=== PATIENT | female | born 2000 | race Caucasian/White ===

== ENCOUNTER 2022-10-13 01:06 | Emergency (ER) | payer BC ==
[~2022-10-13] VITALS: Ht 170.2 cm; Wt 68.2 kg
[~2022-10-13 01:06] MED LIST: ZOFRAN ODT4 MG PO
[2022-10-13] MEDS ORDERED: ZOFRAN ODT4 MG PO (02:22)
[2022-10-13 02:43] VITALS: BP 122/88; PULSE 112; TEMP 98.1
== END 2022-10-13 02:43 | disposition home or self-care (01) ==
LOC: COL.ER 01:06
DX: S06.0X0A Concussion without loss of consciousness, initial encounter (principal); S40.212A Abrasion of left shoulder, initial encounter; S00.81XA Abrasion of other part of head, initial encounter; S40.211A Abrasion of right shoulder, initial encounter; R40.2410 Glasgow coma scale score 13-15, unspecified time; F10.129 Alcohol abuse with intoxication, unspecified; Z28.310 Unvaccinated for COVID-19; V87.8XXA Person injured in other specified noncollision transport accidents involving motor vehicle (traffic), initial encounter; Y92.410 Unspecified street and highway as the place of occurrence of the external cause